=== PATIENT | male | born 1975 | race African-American/Black ===

== ENCOUNTER 2017-03-07 17:08 | Emergency (ER) | payer OTHER ==
[~2017-03-07] VITALS: Ht 182.9 cm; Wt 97.2 kg
[2017-03-07 17:13] VITALS: TEMP 36.7; Ht 182.9 cm; Wt 97.2 kg
--- NOTE | 2017-03-07 17:49 | EMERGENCY ROOM VISIT NOTE ---
History First contact with patient: 17:26 Chief Complaint: EYE ASSESSMENT Stated Complaint: EYE PROBLEMS History of Present Illness The patient is a 42 year old male who presents to the Emergency Room with complaints of blurred vision in both eyes for the past 4 days. The patient states that he has had burning and itching of his eyes and has had some blurring of his vision. He has had watery discharge from the eyes. He denies any injuries to the eyes. He has not been using any drops or ointments in the eyes. He does not wear glasses or contacts. He denies any foreign travel. He denies any nasal congestion, cough or headaches. Review of Systems A complete 10 point review of systems was reviewed with the patient with pertinent positives and negatives as per history of present illness. All else were negative. Social History Smoking Status: Never Smoker Current/Historical Medications No Active Prescriptions or Reported Meds Physical Exam Vital Signs Date Time Temp Pulse Resp B/P (MAP) Pulse Ox O2 Delivery O2 Flow Rate FiO2 03/07/17 18:12 72 16 142/87 100 03/07/17 17:13 36.7 74 20 139/94 99 Room Air Right Eye Acuity: 20/30, with no correction Left Eye Acuity: 20/50 Physical Exam VITALS: Vitals are noted on the nurse's note and reviewed by myself. Vital signs stable. GENERAL: This is a 42-year-old male, in no acute distress, nondiaphoretic, well- developed well-nourished. SKIN: The skin was without rashes. EARS: External auditory canals clear, tympanic membranes pearly ayala without erythema or effusion bilaterally. EYES: Visual acuity as above. Pupils equal round and reactive to light and accommodation. Mild bilateral conjunctival injection. No scleral icterus. Extraocular movements intact. Slit-lamp examination shows uptake of fluorescein at approximately 6:00 of the left cornea. No further uptake noted. No foreign bodies noted. Anterior chamber is within normal limits. Intraocular pressures measure 19 in the right eye, 15 in the left eye. NOSE: Patent, turbinates without inflammation or discharge. MOUTH: Mucous membranes moist. Tonsils are not enlarged. Pharynx without erythema or exudate. NEURO: Patient was alert and oriented to person place and time. Medical Decision & Procedures Medications Administered Medications (Trade) Dose Ordered Sig/Hernando Route Start Time Stop Time Status Last Admin Dose Admin Ciprofloxacin HCl (Ciprofloxacin 0.3% Op Soln) 2 drops Q4H ONCE OP 03/07/17 18:00 03/07/17 18:01 DC 03/07/17 18:02 2 DROPS Medical Decision Differential diagnosis includes conjunctivitis, corneal abrasion, corneal ulcer , glaucoma, among others. The patient was evaluated as above. Slit-lamp examination did show some uptake of fluorescein in the left eye consistent with a small corneal abrasion. The patient will be placed on ciprofloxacin drops for this. He was given information for ophthalmology follow-up for any persistent symptoms. Conservative measures were discussed. He was encouraged to return here if he has any worsening of his symptoms. He verbalized understanding of my assessment and treatment plan and was discharged home in good condition. Medication Reconcilliation Current Medication List: was personally reviewed by me Blood Pressure Screening Patient's blood pressure: Normal blood pressure Impression Primary Impression: Corneal abrasion Departure Information Dispostion Home / Self-Care Condition GOOD Prescriptions No Active Prescriptions or Reported Meds Referrals No Doctor, Assigned (PCP) Barrett Reza D.O. Patient Instructions My [facility] Additional Instructions You have been treated in the Emergency Department today for your Corneal Abrasion. You have been prescribed Ciloxan eye drops. This is an antibiotic which will help to prevent an infection from developing in your affected eye. You should use 2 drops in both eyes 5 times a day until symptoms have completely resolved. For pain control, you can use the following [id number]-thicemm medicines (if >12 yo): - Regular strength (325mg/tab) Tylenol (acetaminophen) 2 tabs every 4-6 hours as needed. Do not exceed 12 tablets in a 24 hour period. Avoid taking more than 4 grams (4000 mg) of Tylenol per day. This includes any other sources of acetaminophen you may take on a regular basis. - Regular strength (200 mg/tab) Advil (ibuprofen) 1-2 tabs every 4-6 hours as needed. Do not exceed a dose of 3200 mg per day. You should relax in a quiet, dark place for the rest of the day. You should wear sunglasses while outside for the next few days until your eyes are not as sensitive to the light. If you still have any problems with vision on Friday, call the soap drier tender to schedule a follow-up appointment. Return to the Emergency Department if your current symptoms worsen despite treatment course outlined above, or if you develop any of the following symptoms : intractable pain, visual disturbances, loss of vision, increased redness, swelling, drainage, or if you develop a fever. Problem Qualifiers Primary Impression: Corneal abrasion Encounter type: initial encounter Laterality: left Qualified Codes: S05.02XA - Injury of conjunctiva and corneal abrasion without foreign body, left eye, initial encounter
[2017-03-07] MEDS ORDERED: CIPROFLOXACIN HCL 0.3% OP SOLN 2.5 ML BTL OP ONE (18:00)
[2017-03-07 18:12] VITALS: BP 142/87; PULSE 72; O2SAT 100
== END 2017-03-07 18:14 | disposition home or self-care (01) ==
LOC: C.EDB 17:16 → C.EDD 18:14
DX: S05.02XA Injury of conjunctiva and corneal abrasion without foreign body, left eye, initial encounter (principal); X58.XXXA Exposure to other specified factors, initial encounter